=== PATIENT | female | born 1955 | race Caucasian/White ===

== ENCOUNTER 2018-10-16 09:49 | Outpatient (CLI) | payer OTHER ==
--- NOTE | 2018-10-16 12:12 | RAD ---
THREE VIEWS LEFT FOOT: History Left foot pain. FINDINGS: AP, lateral, and oblique views of the left foot are obtained. Three views left foot demonstrate no evidence of left foot fractures, subluxations, or bony lesions. IMPRESSION: Normal 3-view left foot. POS: LISANDRO
== END 2018-10-16 09:50 | disposition home or self-care (01) ==
LOC: NAV RAD 09:49
PROVIDERS: ATTEND Family Medicine
DX: M79.672 Pain in left foot (principal)